=== PATIENT | male | born 2000 | race Caucasian/White ===

== ENCOUNTER 2018-08-17 19:08 | Emergency (ER) | payer OTHER ==
[~2018-08-17] VITALS: Ht 182.9 cm; Wt 80.9 kg
[2018-08-17 19:15] VITALS: BP 126/76; TEMP 98.6
[2018-08-17] MEDS ORDERED: ZYRTEC 10MG10 MG PO (19:31)
[2018-08-17] MEDS ORDERED: ATARAX 25MG25 MG/TAB PO (19:31)
[2018-08-17 20:06] VITALS: PULSE 80
== END 2018-08-17 20:07 | disposition home or self-care (01) ==
LOC: COL.ER 19:08
DX: L50.9 Urticaria, unspecified (principal)
CPT/HCPCS: J1100